=== PATIENT | male | born 1955 | race Caucasian/White ===

== ENCOUNTER 2016-11-07 20:10 | Inpatient (IN) | payer MEDICAID ==
[~2016-11-07] VITALS: Ht 172.7 cm; Wt 91.6 kg
[2016-11-07] MEDS ORDERED: SODIUM CHLORIDE 0.9% 1,000 ML IV ONE (21:56)
[2016-11-07 22:13] LABS: BASOPHILS % 0.4 % (0.0-2.0); EOSINOPHILS % 0.8 % (0.0-5.0); HEMATOCRIT. 46.2 % (42.0-52.0); HEMOGLOBIN. 15.7 g/dL (14.0-18.0); LYMPHOCYTES % 18.2 % (20.0-50.0); MEAN CORPUSCULAR HEMOGLOBIN 29.6 pg (28.0-32.0); MEAN CORPUSCULAR HGB CONC 33.9 g/dL (31.0-37.0); MEAN CORPUSCULAR VOLUME 87.3 fL (80.0-94.0); MEAN PLATELET VOLUME 9.4 fl (7.4-10.4); MONOCYTES % 8.3 % (2.0-8.0); NEUTROPHILS % 72.3 % (40.0-76.0); PLATELET 201 x1000/uL (130-400); RED BLOOD CELL COUNT 5.29 mill/uL (4.7-6.1); RED CELL DISTRIBUTION WIDTH 14.6 % (11.6-14.6); WHITE BLOOD COUNT 9.4 x1000/uL (4.5-11.0)
[2016-11-07 22:27] LABS: ALANINE AMINOTRANSFERASE 50 IU/L (13-61); ALBUMIN 3.8 g/dL (3.4-5.0); ANION GAP 16; CALCIUM 8.6 mg/dL (8.5-10.1); CARBON DIOXIDE 26 mEq/L (21-32); CHLORIDE 102 mEq/L (98-107); CREATINE KINASE MB FRACTION 0.9 ng/mL (0.5-3.6); INDEX HEMOLYSI 1 (1-3); INDEX ICTERIC 1 (1-4); INDEX LIPEMIC 1 (1-3); MAGNESIUM 1.9 mg/dL (1.8-2.4); NT PRO B-TYPE NATRIURETIC PEP 23 pg/mL (5-125); TROPONIN I < 0.02 ng/mL (0.00-0.04); UREA NITROGEN BLOOD 17 mg/dL (7-21); eGFR > 60 mL/min (>60)
[2016-11-07 22:28] LABS: D-DIMER 0.31 mg/L FEU (<0.50); PARTIAL THROMBOPLASTIN TIME 23.8 sec (24.0-34.0); PROTHROMBIN TIME 10.7 sec
[2016-11-08 02:27] VITALS: BP 128/90
[2016-11-08] MEDS ORDERED: ASPI-1035 PO (03:01)
[2016-11-08] MEDS ORDERED: HYDR12.529 PO (03:01)
[2016-11-08 04:00] VITALS: BP 135/81
[2016-11-08] MEDS ORDERED: ASPIRIN 81MG TABLET PO ONE (06:00)
[2016-11-08 07:42] VITALS: BP 130/83
[2016-11-08] MEDS ORDERED: ASPIRIN 81MG TABLET PO NR (10:30)
[2016-11-08 11:34] VITALS: BP 125/79
[2016-11-08 15:00] VITALS: BP 122/76
[2016-11-08 15:03] VITALS: BP 125/79
== END 2016-11-08 15:45 | disposition home or self-care (01) | DRG 204 ==
LOC: ER 22:05 → 8WST 23:53
PROVIDERS: ADMIT Internal Medicine; ATTEND Internal Medicine
DX: R55 Syncope and collapse (principal); R56.9 Unspecified convulsions; I10 Essential (primary) hypertension; E11.9 Type 2 diabetes mellitus without complications
CPT/HCPCS: 36415; 70450; 71010; 80053; 82553; 83735; 83880; 84484; 85025; 85379; 85610; 85730; 93005; 96360; 99285; J7030